=== PATIENT | male | born 2000 ===

== ENCOUNTER 2023-06-21 11:56 | Outpatient (AMB) | payer OTHER, MEDICAID, SELFPAY ==
[2023-06-21 11:57] VITALS: BP 130/60; PULSE 92; TEMP 36.8; O2SAT 98; BMI 34.1
--- NOTE | 2023-06-21 11:57 | MHC.OFFWIV ---
Intake Vital Signs 06/21/23 11:57 Height 5 ft 7 in Weight 218 lb BMI 34.1 BP 130/60 Blood Pressure Location Lt brachial Position Sitting Pulse 92 Pulse Source Pulse Oximeter Temp 98.3 F Temp Source Temporal Artery Scan Pulse Oximetry (%) 98 Oxygen Delivery Method Room Air Intake Visit Reasons: EP Headache/Sore throat (masked) Intake Note: pt is for c/o headache and sore throat Patient Tobacco Use Status: Never used Tobacco Allergies No Known Allergies [No Known Allergies*] Allergy (Verified 06/21/23 11:58) Do you need a note to return to daycare/school/sports/work: Yes HPI HPI Comments History of Present Illness Details This is a 22-year-old male with a past medical history of exercise induced asthma and seasonal allergies presenting for evaluation of a sore throat that he has had for the past 1 day. Patient believes that his girlfriend has also had similar symptoms since Saturday. Patient reports a mild nonproductive cough for which she has been using cough drops. Patient denies having any fevers, chills, shortness of breath, difficulty swallowing or ear pain. PFSH Social History Patient Tobacco Use Status: Never used Tobacco Review of Systems Const All systems reviewed & are unremarkable except as noted in HPI and below Denies body aches, Denies chills, Denies fatigue and Denies fever(s) ENT Denies hoarseness, Denies mouth lesions, Denies mouth pain, Denies sinus pain, Denies sinus pressure, Reports sore throat and Denies tongue swelling Card Reports no additional complaints and Denies dyspnea Resp Reports no additional complaints, Reports cough and Denies dyspnea Musc Reports no additional complaints Endo Denies fatigue Aller/Immun Denies tongue swelling Physical Exam Patient is afebrile Const General: cooperative, healthy appearing, comfortable, no acute distress and well developed; No ill appearing Nutritional Appearance: average body habitus Orientation/consciousness: patient oriented x3 Limitations: no limitations HEENT Head: Yes normal to inspection and Yes normocephalic Ears: hearing grossly normal bilaterally, external ears normal, TM's normal bilaterally, EAC's normal and other (mild cerumen bilaterally) General nose exam: Normal external nose present Face and sinus: Yes normal facial exam and Yes sinuses nontender Mouth: Normal oral and palatal mucosa present and moist mucous membranes Teeth and gingiva: dentition normal Throat: Yes postnasal drainage Eyes Eyelids: Yes eyelids normal Conjunctivae: conjunctivae normal Sclerae: sclerae normal EOM: EOMs intact bilaterally Neck Lymphatic: no lymphadenopathy noted Resp Effort & Inspection: normal respiratory effort, able to speak in complete sentences, no audible wheezes, no respiratory distress and not tachypneic Auscultation: clear to auscultation bilaterally Cardio Rate: regular rate Rhythm: regular rhythm Skin General skin exam: no rashes or lesions noted Neuro General: patient oriented x3 Psych Appearance: grossly normal Mental Status: mental status grossly normal Insight: Good insight present (Psych) Judgement: Good judgement present (Psych) Results Reviewed Results Reviewed: rapid strep negative -- reviewed with patient. Assessment & Plan Assessment & Plan (1) Pharyngitis: Code(s): J02.9 - Acute pharyngitis, unspecified Qualifiers: Pharyngitis/tonsillitis etiology: unspecified etiology Qualified Code(s): J02.9 - Acute pharyngitis, unspecified Plan: Patient to use OTC antihistamines such as Claritin/loratadine daily x 7-10 days and follow-up with his PCP as needed if his symptoms persist. Coding Level of Care Code New Pt Level 3 (95759) Diagnoses Pharyngitis, unspecified etiology J02.9 Pharyngitis/tonsillitis etiology: unspecified etiology Time Spent (min) 20
== END 2023-06-21 12:29 | disposition home or self-care (01) ==
PROVIDERS: Visit Provider Physician Assistant
DX: J02.9 Acute pharyngitis, unspecified (principal)
CPT/HCPCS: 87880; 99203

== ENCOUNTER 2023-12-01 11:35 | Emergency (ER) | payer OTHER, SELFPAY ==
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
[2023-12-01 11:54] VITALS: BP 150/81; PULSE 83; RESP 20; TEMP 35.5; O2SAT 100; BMI 26.6
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
[2023-12-01 15:14] VITALS: BP 112/63; PULSE 66; RESP 18; TEMP 36.7; O2SAT 99
[2023-12-01 15:26] VITALS: BP 112/63; PULSE 66; RESP 18; TEMP 36.7
== END 2023-12-01 15:27 | disposition home or self-care (01) ==
PROVIDERS: Emergency Provider Student in an Organized Health Care Education/Training Program
DX: S60.221A Contusion of right hand, initial encounter (principal); M79.641 Pain in right hand; X58.XXXA Exposure to other specified factors, initial encounter; Y93.9 Activity, unspecified; Y92.252 Music hall as the place of occurrence of the external cause; Y99.8 Other external cause status
CPT/HCPCS: 73110; 73130; 99282; 99283